=== PATIENT | male | born 1985 | race Caucasian/White ===

== ENCOUNTER 2021-11-04 21:30 | Emergency (ER) | payer OTHER, SELFPAY ==
[~2021-11-04] VITALS: Ht 177.8 cm; Wt 82.6 kg
[2021-11-04 21:33] VITALS: BP 128/77
== END 2021-11-04 22:33 | disposition left against medical advice (07) ==
LOC: M ED 21:30
DX: Z53.21 Procedure and treatment not carried out due to patient leaving prior to being seen by health care provider (principal)